=== PATIENT | female | born 1955 | race Two or more races ===

== ENCOUNTER 2024-04-12 12:41 | Emergency (ER) | payer OTHER, MEDICARE ==
[~2024-04-12] VITALS: Ht 149.9 cm; Wt 65.9 kg
[2024-04-12] MEDS ORDERED: CALC-1038 PO (13:05)
[2024-04-12] MEDS ORDERED: FOLI0.4T14 PO (13:05)
[2024-04-12] MEDS ORDERED: LOSA-381 PO (13:05)
[2024-04-12] MEDS ORDERED: CHOL500050 PO (13:05)
[2024-04-12] MEDS ORDERED: ASPI81TA87 PO (13:05)
[2024-04-12] MEDS ORDERED: METF-1211 PO ×2 (13:05)
[2024-04-12] MEDS ORDERED: ROSU10TA72 PO (13:05)
[2024-04-12 13:11] VITALS: TEMP 98
[2024-04-12 13:47] LABS: BASOPHILS % (AUTO) 0.4 % (0.0-2.0); EOSINOPHILS % (AUTO) 0.9 % (1.0-6.0); HEMATOCRIT 35.6 % (36-46); HEMOGLOBIN 11.7 g/dL (12.0-16.0); LYMPHOCYTES % (AUTO) 34.1 % (22.0-44.0); MEAN CORPUSCULAR HEMOGLOBIN 30.4 pg (26.0-34.0); MEAN CORPUSCULAR HGB CONC 32.9 G/dL (31.0-37.0); MEAN CORPUSCULAR VOLUME 93 fL (80-100); MONOCYTES # (AUTO) 0.4 K/uL (0.1-1.0); MONOCYTES % (AUTO) 6.8 % (2.0-9.0); NEUTROPHILS # (AUTO) 3.5 K/uL (1.8-7.7); NEUTROPHILS % (AUTO) 57.8 % (40.0-70.0); PLATELET COUNT (AUTO) 228 K/uL (150-450); RED BLOOD CELL COUNT(AUTO) 3.84 MIL/uL (4.00-5.20); RED CELL DISTRIBUTION WIDTH 13.1 % (11.5-14.5)
[2024-04-12 14:03] LABS: ANION GAP 9 mmol/L (8-16); CALCIUM, TOTAL 9.1 mg/dL (8.8-10.5); CARBON DIOXIDE 28 mmol/L (22-29); CHLORIDE 102 mmol/L (98-107); CREATININE 0.91 mg/dL (0.60-1.30); GLOMERULAR FILTR. RATE CALC > 60 mL/min (>60); GLUCOSE,RANDOM 116 mg/dL (70-110); LIPASE 87 U/L (16-77); POTASSIUM 3.9 mmol/L (3.5-5.1); SODIUM SERUM 139 mmol/L (136-145); UREA NITROGEN, BLOOD 8 mg/dL (7-18)
[2024-04-12 14:06] LABS: TROPONIN I-HIGH SENSITIVITY Less Than 4 ng/L (<51)
[2024-04-12 18:59] LABS: ALANINE AMINOTRANSFERASE 24 U/L (12-78); ALBUMIN 3.9 g/dL (3.4-5.0); ALKALINE PHOSPHATASE 52 U/L (46-116); ASPARTATE AMINOTRANSFERASE 18 U/L (15-37); BILIRUBIN,TOTAL 0.4 mg/dL (0.1-1.0); TOTAL PROTEIN, SERUM 7.8 g/dL (6.4-8.2)
[2024-04-12] MEDS ORDERED: OFLO5DRO4 AD (20:11)
[2024-04-12] MEDS ORDERED: OMEP20 PO (20:11)
[2024-04-12 20:17] VITALS: BP 115/57; PULSE 75; RESP 16
== END 2024-04-12 20:19 | disposition home or self-care (01) ==
LOC: EMS 12:41
DX: H60.91 Unspecified otitis externa, right ear (principal); R10.13 Epigastric pain
CPT/HCPCS: 76700; 80048; 80076; 82962; 83690; 84484; 85025; 93005; 99284